=== PATIENT | female | born 1990 | race American Indian/Alaskan Native ===

== ENCOUNTER 2019-09-28 21:12 | Emergency (ER) | payer SELFPAY ==
[2019-09-28] MEDS ORDERED: IBUPROFEN 600 MG TAB PO ONE (21:58)
--- NOTE | 2019-09-28 21:59 | Emergency Department Report ---
Blank Doc - Documentation Documentation: 29-year-old female that presents with fever, chills, and cough. This initial assessment/diagnostic orders/clinical plan/treatment(s) is/are subject to change based on patient's health status, clinical progression and re- assessment by fellow clinical providers in the ED. Further treatment and workup at subsequent clinical providers discretion. Patient/guardians urged not to elope from the ED as their condition may be serious if not clinically assessed and managed. Initial orders include: 1- Patient sent to [facility] for further evaluation and treatment 2- xrays 3- motrin-RN to repeat vitals
--- NOTE | 2019-09-28 22:41 | XRay Report ---
CHEST 2 VIEWS INDICATION / CLINICAL INFORMATION: cough. COMPARISON: None available. FINDINGS: SUPPORT DEVICES: None. HEART / MEDIASTINUM: No significant abnormality. LUNGS / PLEURA: There are bibasilar opacities, right greater than left. No significant pleural effusi on. No pneumothorax. ADDITIONAL FINDINGS: No significant additional findings. IMPRESSION: Bibasilar opacities may represent pneumonia. Follow-up PA and lateral chest radiograph since 2-3 week s are recommended to document clearing. Signer Name: Frankie Allen MD Signed: 09/28/2019 10:37 PM Workstation Name: [id number]
[2019-09-28] MEDS ORDERED: ALBUTEROL 2.5 MG/3 ML NEBU IH ONE (23:45)
[2019-09-28] MEDS ORDERED: ACETAMINOPHEN 325 MG TAB PO STA (23:45)
[2019-09-28] MEDS ORDERED: SODIUM CHLORIDE 0.9% 1000 ML 1,000 ML IV ONE (23:45)
[2019-09-28] MEDS ORDERED: SODIUM CHLORIDE 0.9% 1000 ML 2,000 ML IV ONE (23:45)
--- NOTE | 2019-09-28 23:46 | Emergency Department Report ---
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 She is not known to myself previously. Sh e states she is not . She states she has no chronic medical conditions. She presents to the ER today with a complaint of 1 week of central chest wall pain, fever, cough, chills, generalized weakness. She did not get her flu shot. There is no vomiting. There were no DVT or pulmonary embolism risk factors. She believes her temperature max was 104 degrees at home. She reports 3-4 episo hao of loose green bowel movements over the past 24 hours. No irritative or obstructive urinary symptoms. Positive cough. No mucus. Not experiencing significant body aches at this time. Denies DVT and pulmonary embolism risk factors. -: Gradual Location: chest Radiation: non-radiation Severity scale (0 -10): 10 Quality: aching Consistency: intermittent Improves with: rest Worsens with: movement Associated Symptoms: chest pain, cough, fever/chills, loss of appetite, malaise, weakness. denies: confusion - Related Data Previous Rx's Medication Instructions Recorded Last Taken Type Acetaminophen [Non-Aspirin Extra 500 mg PO Q6HR PRN #30 tablet 09/29/19 Unknown Rx Strength] Albuterol Sulfate [Proair 90 mcg IH Q4HR PRN #2 aer.pow.ba 09/29/19 Unknown Rx Respiclick] Ibuprofen [Motrin] 600 mg PO Q8H PRN #30 tablet 09/29/19 Unknown Rx Potassium Chloride [K-Dur] 20 meq PO BID #10 tab 09/29/19 Unknown Rx levoFLOXacin [Levaquin] 750 mg PO QDAY #9 tablet 09/29/19 Unknown Rx Allergies Allergy/AdvReac Type Severity Reaction Status Date / Time No Known Allergies Allergy Unverified 09/28/19 22:10 ED Review of Systems ROS: Stated complaint: FEVER,SICK FOR A WEEK Other details as noted in HPI Constitutional: fever, malaise, weakness Eyes: denies: eye discharge ENT: congestion Respiratory: cough Cardiovascular: chest pain Gastrointestinal: diarrhea. denies: nausea, vomiting Genitourinary: denies: dysuria Musculoskeletal: denies: back pain Skin: as per HPI Neurological: as per HPI, weakness Psychiatric: as per HPI Hematological/Lymphatic: denies: easy bleeding ED Past Medical Hx - Past Medical History Previous Medical History?: No - Surgical History Past Surgical History?: No - Social History Smoking Status: Never Smoker Substance Use Type: None - Medications Home Medications: Home Medications Medication Instructions Recorded Confirmed Last Taken Type Acetaminophen [Non-Aspirin Extra 500 mg PO Q6HR PRN #30 tablet 09/29/19 Unknown Rx Strength] Albuterol Sulfate [Proair 90 mcg IH Q4HR PRN #2 aer.pow.ba 09/29/19 Unknown Rx Respiclick] Ibuprofen [Motrin] 600 mg PO Q8H PRN #30 tablet 09/29/19 Unknown Rx Potassium Chloride [K-Dur] 20 meq PO BID #10 tab 09/29/19 Unknown Rx levoFLOXacin [Levaquin] 750 mg PO QDAY #9 tablet 09/29/19 Unknown Rx ED Physical Exam - General Limitations: No Limitations General appearance: alert, anxious, obese - Head Head exam: Present: atraumatic, normocephalic - Eye Eye exam: Present: normal appearance, EOMI. Absent: nystagmus - ENT ENT exam: Present: normal orophraynx, mucous membranes dry, normal external ear exam - Neck Neck exam: Present: normal inspection, full ROM. Absent: tenderness - Respiratory Respiratory exam: Present: rhonchi, chest wall tenderness. Absent: respiratory distress, wheezes, rales, stridor - Cardiovascular Cardiovascular Exam: Present: normal rhythm, tachycardia, normal heart sounds. Absent: systolic murmur, diastolic murmur, rubs, gallop - GI/Abdominal GI/Abdominal exam: Present: soft. Absent: distended, tenderness, guarding, rebound, rigid, pulsatile mass - Extremities Exam Extremities exam: Present: normal inspection, full ROM, other (2+ pulses noted in the bilateral upper and lower extremities. There is no palpable cord. negative Homans sign. Muscular compartments are soft. The pelvis is stable.). Absent: pedal edema, calf tenderness - Back Exam Back exam: Present: normal inspection, full ROM. Absent: tenderness, CVA tenderness (R), CVA tenderness (L), paraspinal tenderness, vertebral tenderness - Neurological Exam Neurological exam: Present: alert, other (There is no facial droop. The tongue is midline. Extraocular movements are intact bilaterally. There is 5 out of 5 strength in bilateral upper and lower extremities. Sensation is intact to light touch bilateral upper and lower extremities. ). Absent: motor sensory deficit - Psychiatric Psychiatric exam: Present: anxious - Skin Skin exam: Present: warm, dry, intact, normal color. Absent: rash ED Course Vital Signs 09/28/19 09/28/19 09/28/19 21:38 21:58 23:03 Temperature 100.5 F H 100.5 F H Pulse Rate 129 H 129 H Pulse Rate [ Bilateral] Respiratory 18 18 18 Rate Respiratory Rate [Bilateral ] Blood Pressure 136/70 136/70 O2 Sat by Pulse 93 93 99 Oximetry 09/28/19 09/28/19 09/28/19 23:10 23:13 23:35 Temperature 100.6 F H Pulse Rate Pulse Rate [ Bilateral] Respiratory 18 Rate Respiratory Rate [Bilateral ] Blood Pressure O2 Sat by Pulse 93 Oximetry 09/28/19 09/29/19 09/29/19 23:57 00:00 00:30 Temperature Pulse Rate 94 H 104 H Pulse Rate [ 108 H Bilateral] Respiratory 18 Rate Respiratory 22 Rate [Bilateral ] Blood Pressure 111/68 112/72 O2 Sat by Pulse 96 97 Oximetry 09/29/19 01:00 Temperature Pulse Rate 104 H Pulse Rate [ Bilateral] Respiratory Rate Respiratory Rate [Bilateral ] Blood Pressure 113/63 O2 Sat by Pulse 96 Oximetry - Reevaluation(s) Reevaluation #1: 09/29/19 00:19 Differential diagnosis, including but not limited to: Pneumonia, bronchitis, viral syndrome, costochondritis, reactive airway disease Assessment and plan: 29-year-old female with chest pain, fever, cough, tachycardia, rhonchi, suspicious for pneumonia. She is febrile and tachycardic with minimal hypoxia at this time. She denies DVT and pulmonary embolism risk factors. She is protecting her airway. We will obtain basic laboratory studies, resuscitate with IV fluids, treat symptoms, and reassess. Given young age, lack of medical comorbidities, if patient has clinical improvement in the emergency department, it would be reasonable to consider her for trial of oral outpatient antibiotic management, with supportive care, and close outpatient follow-up. This is very unlikely to be a pulmonary embolism based off of the aforementioned, and given young age and clinical picture, this is very unlikely to be acute coronary syndrome, pericarditis, myocarditis. Patient at low risk for major adverse cardiac event as per the heart score. Reevaluation #2: 09/29/19 02:12 Reassessed. Feeling much improved. Hypoxia resolved. Tolerating liquid feeds. Mildly tachycardic, expected given albuterol administration. Patient will be started on Levaquin therapy, she can follow-up with an outpatient primary care doctor, or return to the emergency room for repeat checkup and/or evaluation. Reevaluation #3: 09/29/19 03:01 Reassessed multiple times. Feels improved. Saturating well on room air. Able to ambulate without significant difficulty. No active vomiting. Endorses readiness for discharge. Discussed return precautions, patient given good Rx prescription card. ED Medical Decision Making - Lab Data Result diagrams: 09/28/19 23:46 09/28/19 23:46 Vital Signs 09/28/19 09/28/19 09/28/19 21:38 21:58 23:03 Temperature 100.5 F H 100.5 F H Pulse Rate 129 H 129 H Pulse Rate [ Bilateral] Respiratory 18 18 18 Rate Respiratory Rate [Bilateral ] Blood Pressure 136/70 136/70 O2 Sat by Pulse 93 93 99 Oximetry 09/28/19 09/28/19 23:13 23:57 Temperature 11.6 F L Pulse Rate Pulse Rate [ 108 H Bilateral] Respiratory Rate Respiratory 22 Rate [Bilateral ] Blood Pressure O2 Sat by Pulse Oximetry Temp Pulse Resp BP Pulse Ox 11.6 F L 108 H 22 136/70 99 09/28/19 23:13 09/28/19 23:57 09/28/19 23:57 09/28/19 21:58 09/28/19 23:03 Vital Signs 09/28/19 09/28/19 09/28/19 21:38 21:58 23:03 Temperature 100.5 F H 100.5 F H Pulse Rate 129 H 129 H Pulse Rate [ Bilateral] Respiratory 18 18 18 Rate Respiratory Rate [Bilateral ] Blood Pressure 136/70 136/70 O2 Sat by Pulse 93 93 99 Oximetry 09/28/19 09/28/19 23:13 23:57 Temperature 11.6 F L Pulse Rate Pulse Rate [ 108 H Bilateral] Respiratory Rate Respiratory 22 Rate [Bilateral ] Blood Pressure O2 Sat by Pulse Oximetry Lab Results 09/28/19 09/28/19 09/28/19 Range/Units 23:46 23:46 23:46 WBC 11.8 H (4.5-11.0) K/mm3 RBC 4.19 (3.65-5.03) M/mm3 Hgb 12.0 (10.1-14.3) gm/dl Hct 36.4 (30.3-42.9) % MCV 87 (79-97) fl MCH 29 (28-32) pg MCHC 33 (30-34) % RDW 12.3 L (13.2-15.2) % Plt Count 319 (140-440) K/mm3 PT 14.1 (12.2-14.9) Sec. INR 1.08 (0.87-1.13) Sodium (137-145) mmol/L Potassium (3.6-5.0) mmol/L Chloride (98-107) mmol/L Carbon Dioxide (22-30) mmol/L Anion Gap mmol/L BUN (7-17) mg/dL Creatinine (0.7-1.2) mg/dL Estimated GFR ml/min BUN/Creatinine Ratio % Glucose (65-100) mg/dL Calcium (8.4-10.2) mg/dL Magnesium (1.7-2.3) mg/dL Total Bilirubin (0.1-1.2) mg/dL AST (5-40) units/L ALT (7-56) units/L Alkaline Phosphatase (35-129) units/L Total Creatine Kinase (30-135) units/L Troponin T < 0.010 (0.00-0.029) ng/mL Total Protein (6.3-8.2) g/dL Albumin (3.9-5) g/dL Albumin/Globulin Ratio % HCG, Quant (0-4) mIU/mL 09/28/19 09/28/19 Range/Units 23:46 23:46 WBC (4.5-11.0) K/mm3 RBC (3.65-5.03) M/mm3 Hgb (10.1-14.3) gm/dl Hct (30.3-42.9) % MCV (79-97) fl MCH (28-32) pg MCHC (30-34) % RDW (13.2-15.2) % Plt Count (140-440) K/mm3 PT (12.2-14.9) Sec. INR (0.87-1.13) Sodium 140 (137-145) mmol/L Potassium 3.1 L (3.6-5.0) mmol/L Chloride 96.8 L (98-107) mmol/L Carbon Dioxide 25 (22-30) mmol/L Anion Gap 21 mmol/L BUN 8 (7-17) mg/dL Creatinine 0.8 (0.7-1.2) mg/dL Estimated GFR > 60 ml/min BUN/Creatinine Ratio 10 % Glucose 128 H (65-100) mg/dL Calcium 9.1 (8.4-10.2) mg/dL Magnesium 2.40 H (1.7-2.3) mg/dL Total Bilirubin 0.40 (0.1-1.2) mg/dL AST 21 (5-40) units/L ALT 33 (7-56) units/L Alkaline Phosphatase 46 (35-129) units/L Total Creatine Kinase 221 H (30-135) units/L Troponin T (0.00-0.029) ng/mL Total Protein 8.2 (6.3-8.2) g/dL Albumin 3.9 (3.9-5) g/dL Albumin/Globulin Ratio 0.9 % HCG, Quant < 2 (0-4) mIU/mL Vital Signs 09/28/19 09/28/19 09/28/19 21:38 21:58 23:03 Temperature 100.5 F H 100.5 F H Pulse Rate 129 H 129 H Pulse Rate [ Bilateral] Respiratory 18 18 18 Rate Respiratory Rate [Bilateral ] Blood Pressure 136/70 136/70 O2 Sat by Pulse 93 93 99 Oximetry 09/28/19 09/28/19 09/28/19 23:10 23:13 23:35 Temperature 100.6 F H Pulse Rate Pulse Rate [ Bilateral] Respiratory 18 Rate Respiratory Rate [Bilateral ] Blood Pressure O2 Sat by Pulse 93 Oximetry 09/28/19 09/29/19 09/29/19 23:57 00:00 00:30 Temperature Pulse Rate 94 H 104 H Pulse Rate [ 108 H Bilateral] Respiratory 18 Rate Respiratory 22 Rate [Bilateral ] Blood Pressure 111/68 112/72 O2 Sat by Pulse 96 97 Oximetry 09/29/19 01:00 Temperature Pulse Rate 104 H Pulse Rate [ Bilateral] Respiratory Rate Respiratory Rate [Bilateral ] Blood Pressure 113/63 O2 Sat by Pulse 96 Oximetry - EKG Data -: EKG Interpreted by Me EKG shows normal: sinus rhythm Rate: normal, tachycardia - EKG Data When compared to previous EKG there are: previous EKG unavailable 09/29/19 00:16 There is no prior EKG available for comparison. Sinus tachycardia, 101 bpm, normal axis, normal intervals, high left ventricular voltage, motion artifact, not consistent with ST elevation myocardial infarction, there is no prior for comparison. - Radiology Data Radiology results: report reviewed, image reviewed interpreted by me: Print Report Referring Physician: NICOLE VINES Patient Name: VASHTI BROWN Date of : 1990 Sex: Female Report Date: 2019-09-28 Report Status: Finalized Findings [address] [address] XRay Report Signed Patient: VASHTI BROWN MR#: [id number] : 1990 Acct:[id number] Age/Sex: 29 / F ADM Date: 09/28/19 Loc: ED Attending Dr: Ordering Physician: NICOLE VINES NP Date of Service: 09/28/19 Procedure(s): XR chest routine 2V Accession Number(s): [id number] cc: NICOLE VINES NP Fluoro Time In Minutes: CHEST 2 VIEWS INDICATION / CLINICAL INFORMATION: cough. COMPARISON: None available. FINDINGS: SUPPORT DEVICES: None. HEART / MEDIASTINUM: No significant abnormality. LUNGS / PLEURA: There are bib asilar opacities, right greater than left. No significant pleural effusion. No pneumothorax. ADDITIONAL FINDINGS: No significant additional findings. IMPRESSION: Bibasilar opacities may represent pneumonia. Follow-up PA and lateral chest radiograph since 2-3 weeks are recommended to document clearing. Signer Name: Frankie Allen MD Signed: 09/28/2019 10:37 PM Workstation Name: [id number] Transcribed By: [place] Dictated By: Frankie Allen MD Electronically Authenticated By: Frankie Allen MD Signed Date/Time: 09/28/192236 DD/ 35 TD/TT: Critical care attestation.: If time is entered above; I have spent that time in minutes in the direct care of this critically ill patient, excluding procedure time. ED Disposition Clinical Impression: Acute febrile illness, Bronchitis Disposition: DC-01 TO HOME OR SELFCARE Is pt being admited?: No Does the pt Need Aspirin: No Condition: Stable Instructions: Acute Bronchitis (ED) Additional Instructions: Take the medications as directed and needed/prescribed. Avoid consumption of alcohol, tobacco, and smoke products. Please drink 5 to 6 cups of water per day for the next 5 to 7 days. Recommend follow-up in 2 to 3 days for repeat checkup and/or evaluation. Patient may follow-up with a primary care doctor, urgent care center, or return to the emergency room for a repeat checkup and/or evalua tion. Please return to the emergency room right away with projectile vomiting, change in mental status, confusion, inability to tolerate liquid feeds, new, worsened or different symptoms not present on the initial emergency room evaluation. Prescriptions: Potassium Chloride [K-Dur] 20 meq PO BID #10 tab levoFLOXacin [Levaquin] 750 mg PO QDAY #9 tablet Ibuprofen [Motrin] 600 mg PO Q8H PRN #30 tablet PRN Reason: Pain Acetaminophen [Non-Aspirin Extra Strength] 500 mg PO Q6HR PRN #30 tablet PRN Reason: Pain , Severe (7-10) Albuterol Sulfate [Proair Respiclick] 90 mcg IH Q4HR PRN #2 aer.pow.ba PRN Reason: Wheezing Referrals: DHARA DANIELS MD [Staff Physician] - 3-5 Days [facility] [Provider Group] - 3-5 Days [facility] [Provider Group] - 3-5 Days
[2019-09-29 00:19] LABS: Hematocrit 36.4 % (30.3-42.9); Mean Corpuscular HGB Conc 33 % (30-34); Mean Corpuscular Volume 87 fl (79-97); Platelet Count 319 K/mm3 (140-440); Red Blood Count 4.19 M/mm3 (3.65-5.03); Red Cell Distribution Width 12.3 % (13.2-15.2)
[2019-09-29 00:32] LABS: Alanine Aminotransferase 33 units/L (7-56); Albumin 3.9 g/dL (3.9-5); BUN/Creatinine Ratio 10; Blood Urea Nitrogen 8 mg/dL (7-17); Calcium 9.1 mg/dL (8.4-10.2); Hemolysis Index 0
[2019-09-29] MEDS ORDERED: POTASSIUM CHLORIDE ER 20 MEQ TAB PO ONE (00:44)
[2019-09-29 00:59] LABS: INR 1.08 (0.87-1.13)
[2019-09-29] MEDS: POTASSIUM CHLORIDE 10 MEQ 10 MEQ/100 ML BAG IV SCH ×2 (01:10→02:20)
[2019-09-29 06:28] VITALS: BP 116/80
== END 2019-09-29 03:45 | disposition home or self-care (01) ==
LOC: ED 21:12
DX: J40 Bronchitis, not specified as acute or chronic (principal); R50.9 Fever, unspecified
CPT/HCPCS: 36415; 71046; 80053; 82550; 83735; 84484; 84702; 85027; 85610; 93005; 93010; 94640; 96365; 99285; J1956; J3480; J7030; 94644